=== PATIENT | female | born 1960 | race Caucasian/White ===

== ENCOUNTER 2017-07-25 11:06 | Emergency (ER) | payer BC ==
[~2017-07-25] VITALS: Ht 165.1 cm; Wt 63.0 kg
[2017-07-25 11:10] VITALS: BP 126/60; PULSE 69; RESP 15; TEMP 97.7; O2SAT 99
[2017-07-25] MEDS ORDERED: SODIUM CHLOR 0.9% 1000 ML INJ 1,000 ML IV ONE (12:45)
--- NOTE | 2017-07-25 13:10 | PD ---
HPI Chief Complaint: Syncope/Near-Syncope Time Seen by Provider: 11:57 Travel History International Travel<30 days: No Contact w/Intl Traveler<30days: No Traveled to known affect area: No History of Present Illness HPI 56-year-old otherwise healthy female presents the ER for evaluation of nausea vomiting and diarrhea since yesterday. Patient had seafood since then she has been having symptoms. Patient states she has been dehydrated that she passed out in the bathroom yesterday. Patient denies any head trauma, no weakness or sensory loss, no speech problems. Patient has no blurred vision or lightheadedness or headache and says "I am feeling fine". No chest pain or shortness of breath or abdominal pain. PFSH Past Medical History Medical History: Denies Significant Hx Diminished Hearing: No Influenza Vaccination: No ?: Not Tubal Ligation: Yes Past Surgical History Tonsillectomy: Yes Social History Alcohol Use: Yes (occ) Tobacco Use: Yes (1ppd) Substance Use: No Allergies-Medications (Allergen,Severity, Reaction): Coded Allergies: No Known Allergies (Unverified , 07/25/17) Reported Meds & Prescriptions Reported Meds & Active Scripts Active Zofran Odt (Ondansetron Odt) 4 Mg Tab 4 Mg SL Q12HR PRN Review of Systems Except as stated in HPI: all other systems reviewed are Neg Physical Exam Narrative GENERAL: Alert oriented 3 no acute distress. SKIN: Focused skin assessment warm/dry. HEAD: Atraumatic. Normocephalic. EYES: Pupils equal and round. No scleral icterus. No injection or drainage. ENT: No nasal bleeding or discharge. Mucous membranes pink and moist. NECK: Trachea midline. No JVD. CARDIOVASCULAR: Regular rate and rhythm. No murmur appreciated. RESPIRATORY: No accessory muscle use. Clear to auscultation. Breath sounds equal bilaterally. GASTROINTESTINAL: Abdomen soft, non-tender, nondistended. Hepatic and splenic margins not palpable. MUSCULOSKELETAL: No obvious deformities. No clubbing. No cyanosis. No edema. NEUROLOGICAL: Awake and alert. No obvious cranial nerve deficits. Motor grossly within normal limits. Normal speech. PSYCHIATRIC: Appropriate mood and affect; insight and judgment normal. Data Data Last Documented VS Vital Signs Date Time Temp Pulse Resp B/P (MAP) Pulse Ox O2 Delivery O2 Flow Rate FiO2 6/19/18 12:24 98 Room Air 07/25/17 11:10 97.7 69 15 126/60 (82) Orders Orders Comprehensive Metabolic Panel (07/25/17 12:32) Complete Blood Count With Diff (07/25/17 12:32) Thyroid Stimulating Hormone (07/25/17 12:32) Urinalysis - C+S If Indicated (07/25/17 12:32) Lipase (07/25/17 12:32) Sodium Chlor 0.9% 1000 Ml Inj (Ns 1000 M (07/25/17 12:45) Ed Discharge Order (07/25/17 14:08) Labs Laboratory Tests Test 07/25/17 13:05 07/25/17 13:10 White Blood Count 3.5 TH/MM3 Red Blood Count 4.49 MIL/MM3 Hemoglobin 14.8 GM/DL Hematocrit 43.2 % Mean Corpuscular Volume 96.3 FL Mean Corpuscular Hemoglobin 32.9 PG Mean Corpuscular Hemoglobin Concent 34.2 % Red Cell Distribution Width 12.3 % Platelet Count 285 TH/MM3 Mean Platelet Volume 7.2 FL Neutrophils (%) (Auto) 77.6 % Lymphocytes (%) (Auto) 16.1 % Monocytes (%) (Auto) 5.3 % Eosinophils (%) (Auto) 0.6 % Basophils (%) (Auto) 0.4 % Neutrophils # (Auto) 2.7 TH/MM3 Lymphocytes # (Auto) 0.6 TH/MM3 Monocytes # (Auto) 0.2 TH/MM3 Eosinophils # (Auto) 0.0 TH/MM3 Basophils # (Auto) 0.0 TH/MM3 CBC Comment DIFF FINAL Differential Comment Blood Urea Nitrogen 14 MG/DL Creatinine 0.90 MG/DL Random Glucose 94 MG/DL Total Protein 7.6 GM/DL Albumin 3.8 GM/DL Calcium Level 9.2 MG/DL Alkaline Phosphatase 93 U/L Aspartate Amino Transf (AST/SGOT) 14 U/L Alanine Aminotransferase (ALT/SGPT) 19 U/L Total Bilirubin 0.3 MG/DL Sodium Level 136 MEQ/L Potassium Level 4.0 MEQ/L Chloride Level 105 MEQ/L Carbon Dioxide Level 24.0 MEQ/L Anion Gap 7 MEQ/L Estimat Glomerular Filtration Rate 65 ML/MIN Lipase 177 U/L Thyroid Stimulating Hormone 3rd Gen 0.782 uIU/ML Urine Color YELLOW Urine Turbidity CLEAR Urine pH 6.0 Urine Specific [place] 1.015 Urine Protein NEG mg/dL Urine Glucose (UA) NEG mg/dL Urine Ketones NEG mg/dL Urine Occult Blood LARGE Urine Nitrite NEG Urine Bilirubin NEG Urine Urobilinogen 0.2 MG/DL Urine Leukocyte Esterase NEG Urine WBC 0-2 /hpf Urine Squamous Epithelial Cells 0-5 /hpf Urine Hyaline Casts 3-5 /lpf Microscopic Urinalysis Comment CULT NOT INDICATED MDM Medical Decision Making Medical Screen Exam Complete: Yes Emergency Medical Condition: Yes Differential Diagnosis Gastroenteritis, dehydration, pancreatitis, gastritis. Narrative Course Laboratory Tests Test 07/25/17 13:05 07/25/17 13:10 White Blood Count 3.5 TH/MM3 Red Blood Count 4.49 MIL/MM3 Hemoglobin 14.8 GM/DL Hematocrit 43.2 % Mean Corpuscular Volume 96.3 FL Mean Corpuscular Hemoglobin 32.9 PG Mean Corpuscular Hemoglobin Concent 34.2 % Red Cell Distribution Width 12.3 % Platelet Count 285 TH/MM3 Mean Platelet Volume 7.2 FL Neutrophils (%) (Auto) 77.6 % Lymphocytes (%) (Auto) 16.1 % Monocytes (%) (Auto) 5.3 % Eosinophils (%) (Auto) 0.6 % Basophils (%) (Auto) 0.4 % Neutrophils # (Auto) 2.7 TH/MM3 Lymphocytes # (Auto) 0.6 TH/MM3 Monocytes # (Auto) 0.2 TH/MM3 Eosinophils # (Auto) 0.0 TH/MM3 Basophils # (Auto) 0.0 TH/MM3 CBC Comment DIFF FINAL Differential Comment Blood Urea Nitrogen 14 MG/DL Creatinine 0.90 MG/DL Random Glucose 94 MG/DL Total Protein 7.6 GM/DL Albumin 3.8 GM/DL Calcium Level 9.2 MG/DL Alkaline Phosphatase 93 U/L Aspartate Amino Transf (AST/SGOT) 14 U/L Alanine Aminotransferase (ALT/SGPT) 19 U/L Total Bilirubin 0.3 MG/DL Sodium Level 136 MEQ/L Potassium Level 4.0 MEQ/L Chloride Level 105 MEQ/L Carbon Dioxide Level 24.0 MEQ/L Anion Gap 7 MEQ/L Estimat Glomerular Filtration Rate 65 ML/MIN Lipase 177 U/L Thyroid Stimulating Hormone 3rd Gen 0.782 uIU/ML Urine Color YELLOW Urine Turbidity CLEAR Urine pH 6.0 Urine Specific [place] 1.015 Urine Protein NEG mg/dL Urine Glucose (UA) NEG mg/dL Urine Ketones NEG mg/dL Urine Occult Blood LARGE Urine Nitrite NEG Urine Bilirubin NEG Urine Urobilinogen 0.2 MG/DL Urine Leukocyte Esterase NEG Urine WBC 0-2 /hpf Urine Squamous Epithelial Cells 0-5 /hpf Urine Hyaline Casts 3-5 /lpf Microscopic Urinalysis Comment CULT NOT INDICATED 56-year-old female here for evaluation of nausea vomiting and diarrhea since yesterday after eating seafood pasta I believe her symptoms are due to gastroenteritis and she improved here after IV fluids and she feels much better and wants to go home. Patient labs are normal, vitals are stable, physical examination unremarkable. We will discharge the patient to follow-up with primary care physician and return to your symptoms change or do not improve. Diagnosis Primary Impression: Gastroenteritis Additional Instructions: Follow-up with primary care physician and return to your symptoms change or not improve. Scripts Ondansetron Odt (Zofran Odt) 4 Mg Tab 4 MG SL Q12HR Y for Nausea/Vomiting, #20 TAB 0 Refills Prov: Jacob Roche MD 07/25/17 Disposition: 01 DISCHARGE HOME Condition: Stable Jacob Roche MD Jul 25, 2017 13:10
[2017-07-25 13:24] LABS: BILIRUBIN, URINE NEG (NEG); BLOOD, URINE LARGE (NEG); GLUCOSE,URINE NEG (NEG); KETONE, URINE NEG (NEG); NITRITE,URINE NEG (NEG); URINE COLOR YELLOW (YELLW/STRAW); URINE LEUKOCYTE ESTERASE NEG (NEG)
[2017-07-25 13:24] LABS: AUTOMATED NEUTROPHIL # 2.7 TH/MM3 (1.8-7.7); BASOPHIL % 0.4 % (0.0-2.0); EOSINOPHIL % 0.6 % (0.0-4.0); HEMATOCRIT 43.2 % (35.0-46.0); HEMOGLOBIN 14.8 GM/DL (11.6-15.3); LYMPH % 16.1 % (9.0-44.0); LYMPHOCYTE # 0.6 TH/MM3 (1.0-4.8); MEAN CELL VOLUME 96.3 FL (80.0-100.0); MEAN CORPUSCULAR HEMOGLOBIN 32.9 PG (27.0-34.0); MEAN CORPUSCULAR HGB CONC 34.2 % (32.0-36.0); MEAN PLATELET VOLUME 7.2 FL (7.0-11.0); MONO % 5.3 % (0.0-8.0); MONOCYTE # 0.2 TH/MM3 (0-0.9); NEUT % 77.6 % (16.0-70.0); PLATELET COUNT 285 TH/MM3 (150-450); RED BLOOD COUNT 4.49 MIL/MM3 (4.00-5.30); RED CELL DISTRIBUTION WIDTH 12.3 % (11.6-17.2); WHITE BLOOD COUNT 3.5 TH/MM3 (4.0-11.0)
[2017-07-25 13:29] LABS: CHLORIDE 105 MEQ/L (98-107); SODIUM (NA) 136 MEQ/L (136-145)
[2017-07-25 13:38] LABS: ALBUMIN 3.8 GM/DL (3.4-5.0); BLOOD UREA NITROGEN 14 MG/DL (7-18); CALCIUM 9.2 MG/DL (8.5-10.1); GLUCOSE,RANDOM 94 MG/DL (74-106)
[2017-07-25 13:41] LABS: ALT (GPT) 19 U/L (10-53); AST (GOT) 14 U/L (15-37); GLOMERULAR FILTRATION RATE 65 ML/MIN (>89)
[2017-07-25 13:43] LABS: TOTAL BILIRUBIN ADULT 0.3 MG/DL (0.2-1.0); TOTAL PROTEIN 7.6 GM/DL (6.4-8.2)
[2017-07-25 13:44] LABS: ALKALINE PHOSPHATASE 93 U/L (45-117)
[2017-07-25 13:56] LABS: SQUAMOUS EPITHELIAL CELL URINE 0-5 /hpf (0-5); WBC, URINE 0-2 /hpf (0-5)
[2017-07-25] MEDS ORDERED: ZOFR4TAB3 SL (14:08)
== END 2017-07-25 14:38 | disposition home or self-care (01) ==
LOC: PHED 11:06
DX: K52.9 Noninfective gastroenteritis and colitis, unspecified (principal); R55 Syncope and collapse; F17.210 Nicotine dependence, cigarettes, uncomplicated
CPT/HCPCS: 80053; 81001; 83690; 84443; 85025; 96360; 99284; J7030